=== PATIENT | female | born 1990 | race American Indian/Alaskan Native ===

== ENCOUNTER 2019-06-27 14:23 | Emergency (ER) | payer SELFPAY ==
[2019-06-27] MEDS ORDERED: IBUPROFEN 800 MG TAB PO ONE (15:15)
[2019-06-27 15:16] VITALS: BP 106/66
[2019-06-27] MEDS ORDERED: IBUPROFEN 600 MG TAB PO ONE (15:16)
--- NOTE | 2019-06-27 15:17 | Emergency Department Report ---
Blank Doc - Documentation Documentation: 29-year-old female that presents with n/v, body aches, fever, chills, and URI symptoms. This initial assessment/diagnostic orders/clinical plan/treatment(s) is/are subject to change based on patient's health status, clinical progression and re- assessment by fellow clinical providers in the ED. Further treatment and workup at subsequent clinical providers discretion. Patient/guardians urged not to elope from the ED as their condition may be serious if not clinically assessed and managed. Initial orders include: 1- Patient sent to [facility] for further evaluation and treatment 2- abs 3- UA 4- CXR 5- motrin-RN to repeat vitals 5- flu swab
[2019-06-27 16:05] LABS: Basophils % (Auto) 0.5 % (0.0-1.8); Hematocrit 41.4 % (30.3-42.9); Hemoglobin 13.8 gm/dl (10.1-14.3); Lymphocytes # (Auto) 0.6 K/mm3 (1.2-5.4); Lymphocytes % (Auto) 15.3 % (13.4-35.0); Mean Corpuscular HGB Conc 33 % (30-34); Mean Corpuscular Volume 91 fl (79-97); Monocytes # (Auto) 0.3 K/mm3 (0.0-0.8); Platelet Count 165 K/mm3 (140-440); Red Blood Count 4.56 M/mm3 (3.65-5.03); Red Cell Distribution Width 13.9 % (13.2-15.2)
[2019-06-27 16:28] LABS: Alanine Aminotransferase 55 units/L (7-56); Albumin 4.5 g/dL (3.9-5); BUN/Creatinine Ratio 12; Blood Urea Nitrogen 12 mg/dL (7-17); Calcium 8.8 mg/dL (8.4-10.2); Hemolysis Index 6
--- NOTE | 2019-06-27 18:33 | XRay Report ---
CHEST 2 VIEWS INDICATION / CLINICAL INFORMATION: cough/n/v. COMPARISON: None available. FINDINGS: SUPPORT DEVICES: None. HEART / MEDIASTINUM: No significant abnormality. LUNGS / PLEURA: Calcified granuloma left upper lobe. No significant pulmonary or pleural abnormality. No pneumothorax. ADDITIONAL FINDINGS: No significant additional findings. IMPRESSION: 1. No acute findings. 2. Prior granulomatous disease Signer Name: Benjamin Caldwell MD Signed: 06/27/2019 6:29 PM Workstation Name: [id number]
[2019-06-27] MEDS ORDERED: SODIUM CHLORIDE 0.9% 1000 ML 1,000 ML IV ONE (19:29)
[2019-06-27] MEDS ORDERED: ONDANSETRON 4 MG/2 ML INJ IV ONE (19:29)
[2019-06-27 20:53] LABS: Bacteria,Urine 4+ /HPF (Negative); Bilirubin,Urine NEG (Negative); Blood,Urine NEG (Negative); Color,Urine Amber (Yellow); Mucus,Urine 2+ /HPF
[2019-06-27] MEDS ORDERED: cefTRIAXone/NS 1 GM/50 ML 1 GM/50 ML BAG IV ONE (21:39)
[2019-06-27] MEDS ORDERED: POTASSIUM CHLORIDE ER 20 MEQ TAB PO ONE (22:36)
--- NOTE | 2019-06-27 22:41 | Emergency Department Report ---
ED N/V/D HPI - General Chief complaint: Nausea/Vomiting/Diarrhea Stated complaint: FLU SYMPTOMS Time Seen by Provider: 06/27/19 15:14 Source: patient Mode of arrival: Ambulatory Limitations: No Limitations - History of Present Illness Initial comments: Patient is a 29-year-old -Tongan female with no past medical history who presents to the ED accompanied acute onset persistent intermittent nausea and vomiting with diarrhea, nasal and sinus congestion and dry cough with intermittent fever over 102F for the last 3 days. Patient was complains of diffuse body aches and pains and lack of appetite. Patient denies dizziness, syncope, chest pain, shortness of breath, back pain, dysuria, urinary frequency and urgency or vaginal discharge. Patient states that her symptoms started after she ate food from a fast food restaurant 4 days ago. MD complaint: nausea, vomiting, diarrhea, other (fever; chills; dry cough) -: Sudden, days(s) (3) Description of Vomiting: food contents, watery Description of Diarrhea: water Associated Abdominal Pain: No Location: diffuse Radiation: none Severity: severe Pain Scale: 7 Quality: dull Consistency: intermittent Improves with: none Worsens with: eating Context: possible food poisoning, sick contacts Associated Symptoms: denies other symptoms, fever/chills, loss of appetite, malaise, nausea/vomiting. denies: myalgias, chest pain, cough, rash, dysuria, shortness of breath, syncope, weakness, other - Related Data Previous Rx's Medication Instructions Recorded Last Taken Type Benzonatate [Tessalon Perles] 100 mg PO Q8HR #30 capsule 06/27/19 Unknown Rx Diphenoxylate/Atropine [Lomotil] 1 - 2 tab PO Q4H PRN #15 tablet 06/27/19 Unknown Rx Famotidine [Pepcid] 20 mg PO Q12H #20 tablet 06/27/19 Unknown Rx Ibuprofen [Motrin] 600 mg PO Q8H PRN #20 tablet 06/27/19 Unknown Rx Ondansetron [Zofran Odt] 4 mg PO Q6HR PRN #20 tab.rapdis 06/27/19 Unknown Rx cephALEXin [Keflex] 500 mg PO Q8HR #30 cap 06/27/19 Unknown Rx Allergies Allergy/AdvReac Type Severity Reaction Status Date / Time No Known Allergies Allergy Unverified 06/27/19 14:31 ED Review of Systems ROS: Stated complaint: FLU SYMPTOMS Other details as noted in HPI Constitutional: chills, fever Eyes: denies: eye pain, eye discharge, vision change ENT: congestion. denies: ear pain, throat pain Respiratory: cough. denies: shortness of breath, wheezing Cardiovascular: denies: chest pain, palpitations Endocrine: no symptoms reported Gastrointestinal: nausea, vomiting, diarrhea. denies: abdominal pain Genitourinary: denies: urgency, dysuria, discharge Musculoskeletal: denies: back pain, joint swelling, arthralgia Skin: denies: rash, lesions Neurological: denies: headache, weakness, paresthesias Psychiatric: denies: anxiety, depression Hematological/Lymphatic: denies: easy bleeding, easy bruising ED Past Medical Hx - Past Medical History Previous Medical History?: No - Surgical History Past Surgical History?: Yes Additional Surgical History: C section - Social History Smoking Status: Never Smoker Substance Use Type: None - Medications Home Medications: Home Medications Medication Instructions Recorded Confirmed Last Taken Type Benzonatate [Tessalon Perles] 100 mg PO Q8HR #30 capsule 06/27/19 Unknown Rx Diphenoxylate/Atropine [Lomotil] 1 - 2 tab PO Q4H PRN #15 tablet 06/27/19 Unknown Rx Famotidine [Pepcid] 20 mg PO Q12H #20 tablet 06/27/19 Unknown Rx Ibuprofen [Motrin] 600 mg PO Q8H PRN #20 tablet 06/27/19 Unknown Rx Ondansetron [Zofran Odt] 4 mg PO Q6HR PRN #20 tab.rapdis 06/27/19 Unknown Rx cephALEXin [Keflex] 500 mg PO Q8HR #30 cap 06/27/19 Unknown Rx ED Physical Exam - General Limitations: No Limitations General appearance: alert, in no apparent distress - Head Head exam: Present: atraumatic, normocephalic, normal inspection - Eye Eye exam: Present: normal appearance, PERRL, EOMI Pupils: Present: normal accommodation - ENT ENT exam: Present: normal orophraynx, mucous membranes moist, other (grossly congested nasal passages) - Neck Neck exam: Present: normal inspection, full ROM - Respiratory Respiratory exam: Present: normal lung sounds bilaterally. Absent: respiratory distress, wheezes, rales, rhonchi, stridor, chest wall tenderness, accessory muscle use, decreased breath sounds, prolonged expiratory - Cardiovascular Cardiovascular Exam: Present: normal rhythm, tachycardia, normal heart sounds. Absent: systolic murmur, diastolic murmur, rubs, gallop - GI/Abdominal GI/Abdominal exam: Present: soft, normal bowel sounds. Absent: tenderness, guarding, rebound, hyperactive bowel sounds, hypoactive bowel sounds, organomegaly - Extremities Exam Extremities exam: Present: normal inspection, full ROM, normal capillary refill - Back Exam Back exam: Present: normal inspection, full ROM. Absent: muscle spasm, paraspinal tenderness, vertebral tenderness - Neurological Exam Neurological exam: Present: alert, oriented X3, CN II-XII intact, normal gait - Psychiatric Psychiatric exam: Present: normal affect, normal mood - Skin Skin exam: Present: warm, dry, intact, normal color. Absent: rash ED Course Vital Signs 06/27/19 06/27/19 06/27/19 15:15 15:18 16:18 Temperature 102 F H Pulse Rate 105 H Respiratory 20 22 22 Rate Blood Pressure 106/66 O2 Sat by Pulse 97 Oximetry ED Medical Decision Making - Lab Data Result diagrams: 06/27/19 15:39 06/27/19 15:39 - Radiology Data Radiology results: report reviewed, image reviewed Chest x-ray shows no acute cardiopulmonary abnormalities or pneumonitis. - Medical Decision Making This is a 29-year-old female who presented to the ED with assistance fever, chills, intermittent nausea and vomiting and diarrhea and diffuse body aches and pains with nasal and sinus congestion and dry cough. In the ED, patient is alert and oriented 3 and is not in distress, tachycardic and febrile in triage. Patient was treated for fever also given antiemetics, normal saline 1 L IV bolus 1. Blood pressure results were reviewed and are all nonactionable except urinalysis that shows significant urinary tract infection and elevated lipase levels up to 144 and hypokalemia 3.2 mmol per liter. Patient also received potassium 40 mEq by mouth 1 and Rocephin 1 g IV 1. On reevaluation, the patient's fever resolved with medications, patient was able to keep oral fluids orally taken. Patient was discharged home on an anti-emetics, and antibiotics f or UTI as well as antacids. Patient was advised to maintain a clear liquid diet for 12-24 hours, take medications as needed and follow up with her primary care physician in 5-7 days for reevaluation or return to the ED immediately if symptoms get worse. - Differential Diagnosis Viral gastroenteritis; URI; Pneumonia; UTI; Influenza Critical care attestation.: If time is entered above; I have spent that time in minutes in the direct care of this critically ill patient, excluding procedure time. ED Disposition Clinical Impression: Acute upper respiratory infection, Flu-like symptoms, Viral gastroenteritis, Nausea, vomiting and diarrhea, Fever with chills, Acute urinary tract infection Disposition: TO HOME OR SELFCARE Is pt being admited?: No Does the pt Need Aspirin: No Condition: Stable Instructions: Acute Nausea and Vomiting (ED), Urinary Tract Infection in Women (ED), Gastroenteritis (ED), Food Poisoning (ED), Acute Diarrhea (ED) Additional Instructions: Maintenance clinically diet for 12-24 hours, take medications with food, drink plenty of fluids and follow-up with your primary care physician in 5-7 days for reevaluation. Return to the ED immediately if symptoms get worse. Prescriptions: cephALEXin [Keflex] 500 mg PO Q8HR #30 cap Diphenoxylate/Atropine [Lomotil] 1 - 2 tab PO Q4H PRN #15 tablet PRN Reason: Diarrhea Ibuprofen [Motrin] 600 mg PO Q8H PRN #20 tablet PRN Reason: Pain Famotidine [Pepcid] 20 mg PO Q12H #20 tablet Benzonatate [Tessalon Perles] 100 mg PO Q8HR #30 capsule Ondansetron [Zofran Odt] 4 mg PO Q6HR PRN #20 tab.rapdis PRN Reason: Nausea Referrals: PRIMARY CARE, [Primary Care Provider] - 3-5 Days [facility] [Outside] - 3-5 Days Time of Disposition: 22:40 Print Language: BELARUSIAN
== END 2019-06-27 23:29 | disposition home or self-care (01) ==
LOC: ED 14:23
DX: J06.9 Acute upper respiratory infection, unspecified (principal); A08.4 Viral intestinal infection, unspecified; N39.0 Urinary tract infection, site not specified; R11.2 Nausea with vomiting, unspecified; Z79.899 Other long term (current) drug therapy
CPT/HCPCS: 36415; 71046; 80053; 81001; 82140; 83690; 84703; 85025; 87040; 87086; 87400; 96361; 96365; 96375; 99284; J0696; J2405; J7030